=== PATIENT | female | born 1935 | race Two or more races ===

== ENCOUNTER 2018-03-15 13:36 | Emergency (ER) | payer OTHER ==
[~2018-03-15] VITALS: Ht 152.4 cm; Wt 49.0 kg
[2018-03-15] MEDS ORDERED: ADULT ASPIRIN81 MG PO (13:54)
[2018-03-15] MEDS ORDERED: METOPROLOL SUCC50 MG PO (13:54)
== END 2018-03-15 15:42 | disposition home or self-care (01) ==
LOC: ER 13:36
DX: S00.83XA Contusion of other part of head, initial encounter (principal); W18.09XA Striking against other object with subsequent fall, initial encounter; Y93.01 Activity, walking, marching and hiking; Y92.488 Other paved roadways as the place of occurrence of the external cause; Y99.8 Other external cause status